=== PATIENT | male | born 1990 | race African-American/Black ===

== ENCOUNTER 2025-03-13 18:13 | Inpatient (IN) | payer SELFPAY ==
[~2025-03-13] VITALS: Ht 182.9 cm; Wt 88.5 kg
--- NOTE | 2025-03-13 18:59 | ED.PDOC ---
History of Present Illness HPI Comments 34-year-old male who came to ER for generalized weakness. Patient states he has a history of kidney failure. For the past few hours, been experiencing generalized weakness, muscle and joint pains, myalgia, left flank pain, epigastric pain, nausea and vomiting with chills. Patient states he feels very dehydrated. Chief Complaint: General Weakness Time Seen by MD: 18:59 Reviewed Notes: Nurses Notes Allergies: Coded Allergies: NO KNOWN ALLERGIES (Unverified , 03/13/25) Information Source: Patient Mode of Arrival: Ambulatory Severity: Moderate Timing: Hours Duration: Since onset Prehospital treatment: None Past Medical History PAST MEDICAL HISTORY: CKF Surgical History: Denies all surgeries Family History Family History: Reviewed,noncontributory to illness Social History Smoker: Non-Smoker Alcohol: Occasionally Drugs: Denies Drug Use Lives In: Home Constitutional: reports: chills, diaphoresis, malaise; denies: fatigue, fever, sweats, weakness, others EENTM: denies: blurred vision, double vision, ear bleeding, ear discharge, ear drainage, ear pain, ear ringing, eye pain, eye redness, hearing loss, mouth pain, mouth swelling, nasal discharge, nose bleeding, nose congestion, nose pain, photophobia, tearing, throat pain, throat swelling, voice changes, others Respiratory: denies: cough, hemoptysis, orthopnea, SOB at rest, shortness of breath, SOB with excertion, stridor, wheezing, others Cardiovascular: denies: chest pain, dizzy spells, diaphoresis, Dyspnea on exertion, edema, irregular heart beat, left arm pain, lightheadedness, palpitations, PND, syncope, others Gastrointestinal: reports: abdominal pain, nausea, vomiting; denies: abdomen distended, blood streaked bowels, constipated, diarrhea, dysphagia, difficulty swallowing, hematemesis, melena, poor appetite, poor fluid intake, rectal bleed ing, rectal pain, others Genitourinary: reports: flank pain; denies: burning, dysuria, frequency, hematuria, incontinence, penile discharge, penile sore, pain, testicle pain, testicle swelling, urgency, others Neurological: denies: dizziness, fainting, headache, left sided numbness, left sided weakness, numbness, paresthesia, pre-existing deficit, right sided numbness, right sided weakness, seizure, speech problems, tingling, tremors, weakness, others Musculoskeletal: denies: back pain, gout, joint pain, joint swelling, muscle pain, muscle stiffness, neck pain, others Integumetry: denies: bruises, change in color, change in hair/nails, dryness, laceration, lesions, lumps, rash, wounds, others Allergic/Immunocompromised: denies: Difficulty Healing, Frequent Infections, Hives, Itching, others Hematologic/Lymphatic: denies: anemia, blood clots, easy bleeding, easy bruising, swollen glands, others Endocrine: denies: excessive hunger, excessive sweating, excessive thirst, excessive urination, flushing, intolerance to cold, intolerance to heat, unexplained weight gain, unexplained weight loss, others Psychiatric: denies: anxiety, bipolar disorder, depression, hopeless, panic disorder, schizophrenia, sleepless, suicidal, others Physical Exam General Appearance: No Apparent Distress, Normal HEENT: Normal ENT Inspection, Pharynx Normal, TMs Normal Neck: Full Range of Motion, Non-Tender, Normal, Normal Inspection Respiratory: Chest Non-Tender, Lungs Clear, No Accessory Muscle Use, No Respiratory Distress, Normal Breath Sounds Cardiovascular: No Edema, No JVD, No Murmur, No Gallop, Normal Peripheral Pulses, Regular Rate/Rhythm Breast Exam: Deferred Gastrointestinal: No Organomegaly, Non Tender, No Pulsatile Mass, Normal Bowel Sounds, Soft Genitalia: Deferred Pelvic: Deferred Rectal: Deferred Extremities: No calf tenderness, Normal capillary refill, Normal inspection, Normal range of motion, Non-tender, No pedal edema Musculoskeletal : Apperance: Normal Neurologic: Alert, strainer tender II-XII nml as Tested, No Motor Deficits, Normal Affect, Normal Mood, No Sensory Deficits Cerebellar Function: Normal Reflexes: Normal Skin: Dry, Normal Color, Warm Lymphatic: No Adenopathy Was a procedure done? Was a procedure done?: No Differential Dx Considerations may include: Anemia, electrolyte imbalance, urinary tract infection, gastritis, dehydration, kidney failure X-Ray, Labs, Meds, VS Vital Signs Date Time Temp Pulse Resp B/P (MAP) Pulse Ox O2 Delivery O2 Flow Rate FiO2 03/13/25 18:14 97.5 107 18 156/83 100 97.5 Lab Test 03/13/25 19:11 Range/Units White Blood Count 12.6 H 4.4-10.8 10^3/uL Red Blood Count 6.17 H 4.5-5.90 10^6/uL Hemoglobin 20.5 H 13.5-17.5 g/dL Hematocrit 58.0 H 41.0-53.0 % Mean Corpuscular Volume 94.0 80.0-100.0 fL Mean Corpuscular Hemoglobin 33.1 H 28.0-32.0 pg Mean Corpuscular Hemoglobin Concent 35.2 32.0-36.0 g/dL Red Cell Distribution Width 13.4 11.8-14.3 % Platelet Count 247 140-450 10^3/uL Mean Platelet Volume 9.0 6.9-10.8 fL Neutrophils (%) (Auto) 86.9 H 37.0-80.0 % Lymphocytes (%) (Auto) 7.0 L 10.0-50.0 % Monocytes (%) (Auto) 5.9 0.0-12.0 % Eosinophils (%) (Auto) 0.1 0.0-7.0 % Basophils (%) (Auto) 0.1 0.0-2.0 % Neutrophils # (Auto) 10.9 H 1.6-8.6 10 ^3/uL Lymphocytes # (Auto) 0.9 0.4-5.4 10 ^3/uL Monocytes # (Auto) 0.7 0-1.3 10 ^3/uL Eosinophils # (Auto) 0 0-0.8 10 ^3/uL Basophils # (Auto) 0 0-0.2 10 ^3/uL Nucleated Red Blood Cells 0.4 % Sodium Level 135 L 136-145 mmol/L Potassium Level 4.7 3.5-5.1 mmol/L Chloride Level 96 L 98-107 mmol/L Carbon Dioxide Level 21 20-31 mmol/L Anion Gap 18 H 5-15 Blood Urea Nitrogen 10 9-23 mg/dL Creatinine 1.88 H 0.700-1.30 mg/dL Glomerular Filtration Rate Calc 47 >90 mL/min BUN/Creatinine Ratio 5.3 L 10.0-20.0 Serum Glucose 193 H 74-106 mg/dL Calcium Level 11.7 H 8.7-10.4 mg/dL Magnesium Level 2.3 1.6-2.6 mg/dL Total Bilirubin 2.0 H 0.2-1.0 mg/dL Aspartate Amino Transferase (AST) 62 H 13-40 U/L Alanine Aminotransferase (ALT) 77 H 7-40 U/L Alkaline Phosphatase 118 H 46-116 U/L Total Protein 9.7 H 5.7-8.2 g/dL Albumin Pending Time of 1ST Reevaluation: 18:56 Reevaluation 1ST: Unchanged Patient Education/Counseling: Diagnosis, Treatment Family Education/Counseling: Need For Follow Up SEPSIS Sepsis Screen Date sepsis recognized/suspect: Mar 13, 2025 Time Sepsis recognized/suspect: 1814 Recent Procedure: No On Antibiotic Therapy: No Respiratory Rate >20: No Heart Rate >90: Yes Temp<36 C (96.8 F) or >38.3 C: No SBP <90 or MAP <65 mmHG: No New Acute Mental Status Change: No Is the patient on CPAP, BIPAP,: No Physician Orders Comprehensive Metabolic Panel (03/13/25 18:47) Urinalysis (03/13/25 18:47) Magnesium (03/13/25 18:47) Ct Ab Pel Wo Con-No Oral Or Iv (03/13/25 18:47) Lipase (03/13/25 20:13) Vital Signs Date Time Temp Pulse Resp B/P (MAP) Pulse Ox O2 Delivery O2 Flow Rate FiO2 03/13/25 18:14 97.5 107 18 156/83 100 97.5 Laboratory Tests Test 03/13/25 19:11 White Blood Count 12.6 10^3/uL (4.4-10.8) H Departure 1 Departure Time of Disposition: 20:14 Impression: Primary Impression: Nausea and vomiting Additional Impressions: Dehydration Acute renal injury Disposition: ADMITTED INPATIENT Admit to: Med Surg Condition: Guarded Discharged With: Self Comments 34-year-old male complains of some migrating abdominal pain and nausea and vomiting for the last couple of days. Lab workup shows elevated creatinine of 1.8. H&H are elevated consistent with dehydration and hemoconcentration. Patient was given IV fluids and nausea medicine. Patient will need to be admitted for dehydration and acute renal injury. Critical Care Note Critical Care Time?: No Stability Stability form required: No Heart Score Heart Score: Heart Score Response (Comments) Value History N/A 0 EKG N/A 0 Age N/A 0 Risk Factors N/A 0 Troponin N/A 0 Total 0 I personally scribed for HUGO JUSTIN MD ([email or web address]) on 03/13/25 at 18:59. Electronically submitted by Carlos Eduardo Yun ([facility]). HUGO JUSTIN MD Mar 13, 2025 18:59
[2025-03-13 19:45] LABS: Hemoglobin 20.5 g/dL (13.5-17.5); Mean Corpuscular Volume 94.0 fL (80.0-100.0); Nucleated Red Blood Cells % 0.4 %
[2025-03-13 19:48] LABS: Mean Corpuscular Hemoglobin 33.1 pg (28.0-32.0)
[2025-03-13 19:49] LABS: Hematocrit 58.0 % (41.0-53.0)
--- NOTE | 2025-03-13 19:52 | DVH ---
Exam: CT CT AB PEL WO CON-NO ORAL OR IV History: left flank pain Comparison Study: None TECHNIQUE: Multidetector CT of the abdomen was performed from lung bases to pubic symphysis. Imaging was performed without IV contrast. Axial, coronal and sagittal multiplanar reformats were obtained fr om the axial data set by the technologist. Radiation Dose Information: CT Dose: CTDI volume is 11.46 mGy. Dose-length product is 657.54 mGy*cm FINDINGS: Evaluation of solid organs is limited due to lack of intravenous contrast use. Findings: Lung Bases: No acute or significant lung base finding. Normal heart size. No pleural or pericardial effusion. Liver: The liver is normal in size. No focal lesions. Gallbladder and Biliary Tree: Unremarkable Spleen: Unremarkable Pancreas: Mild diffuse enlargement of the pancreas with peripancreatic stranding. Correlate with panc reatic enzymes to exclude pancreatitis. Adrenal Glands: Unremarkable Kidneys: Kidneys are grossly normal without calculi or hydronephrosis. Bladder: Grossly unremarkable for degree of distention. Bowel: Mild fluid distended stomach. Small bowel and colon are normal in caliber and distribution. T he appendix is not visualized; however, no secondary findings of acute appendicitis identified. Ascites: Absent Lymphadenopathy: No mesenteric, retroperitoneal or periportal lymphadenopathy. Abdominal Wall and Mesentery: Unremarkable. Vasculature: The visualized abdominal aorta is normal in size and caliber. Evaluation of abdominal a nd pelvic vessels is limited due to lack of intravenous contrast. Pelvic Organs: Unremarkable Musculoskeletal: No aggressive focal bony lesions, acute fractures or dislocation. Soft tissues: Unremarkable IMPRESSION: 1. Mild diffuse enlargement of the pancreas with peripancreatic stranding. Correlate with lab value s to exclude pancreatitis. 2. Stranding in the mesenteric fat around the pancreas and anterior to the right left kidneys with th ickening of Gerota's fascia bilaterally. 3. Mild fluid-filled distended stomach. May represent gastroparesis, gastric outlet obstruction, may be secondary to the pancreatitis, or use of GLP-1 medications. 4. No free air or free fluid. 5. No nephrolithiasis or hydronephrosis 6. Mild thickening of the left colon without abnormal distention. May represent inflammatory changes secondary to the pancreatitis. Radiation optimization: All CT scans at this facility use at least one of these dose optimization te chniques: automated exposure control mA and/or kV adjustment per patient size (includes targeted exa ms where dose is matched to clinical indication) or iterative reconstruction.
[2025-03-13 19:59] LABS: BUN/Creatinine Ratio 5.3 (10.0-20.0); Blood Urea Nitrogen 10 mg/dL (9-23); Carbon Dioxide 21 mmol/L (20-31); Magnesium 2.3 mg/dL (1.6-2.6)
[2025-03-13 20:01] LABS: Alanine Aminotransferase 77 U/L (7-40); Alkaline Phosphatase 118 U/L (46-116); Bilirubin, Total 2.0 mg/dL (0.2-1.0); Calcium 11.7 mg/dL (8.7-10.4); Glucose 193 mg/dL (74-106); Total Protein 9.7 g/dL (5.7-8.2)
[2025-03-13 20:03] LABS: Anion Gap 18 (5-15); Chloride 96 mmol/L (98-107); Potassium 4.7 mmol/L (3.5-5.1); Sodium 135 mmol/L (136-145)
[2025-03-13 20:19] LABS: Albumin 5.8 g/dL (3.2-4.8)
[2025-03-13 20:36] VITALS: PULSE 89; RESP 18; O2SAT 96
[2025-03-13] MEDS: MORPHINE SULFATE 4 MG/ML SYR/VIAL IV ONE (20:40)
[2025-03-13] MEDS: SODIUM CHLORIDE 0.9% 1,000 ML IV ONE ×2 (20:41→21:44)
[2025-03-13] MEDS: ONDANSETRON HCL 4 MG/2 ML VIAL IV ONE (20:41)
--- NOTE | 2025-03-13 21:33 | DVH ---
CLINICAL HISTORY: P{ancreatitis TECHNIQUE: Single view of the chest was obtained. COMPARISON: None FINDINGS: The heart size and pulmonary vasculature are normal. The lungs are clear. IMPRESSION: NO ACUTE CARDIOPULMONARY PROCESS.
[2025-03-13] MEDS: HYDROmorphone HCL 2 MG/ML VL/or syr IV ONE (21:42)
[2025-03-13 21:57] LABS: INR 1.05 (0.9-1.15); Partial Thromboplastin Time 28.0 SEC (24.5-34.5); Prothrombin Time 11.1 sec (9.3-11.8)
[2025-03-13 22:32] LABS: Triglycerides 85 mg/dL (< 150)
[2025-03-13] MEDS: SODIUM CHLORIDE 0.9% 1,000 ML IV SCH (22:33)
[2025-03-13 22:34] LABS: Cholesterol 158 mg/dL (< 200); HDL Cholesterol 69 mg/dL (40-59)
[2025-03-13 22:37] LABS: Lactic Acid w/Reflex 3.3 mmol/L (0.4-2.0)
[2025-03-13] MEDS: ONDANSETRON HCL 4 MG/2 ML VIAL IM ONE (23:02)
[2025-03-13] MEDS: PIPERACILLIN-TAZOB 3.375GM 100 ML IV ONE (23:20)
[2025-03-14] VITALS (9 sets, daily range): BP systolic 120–173; BP diastolic 75–103; PULSE 61–86; RESP 16–20; TEMP 97.6–99.1; O2SAT 93–98
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
[2025-03-14] MEDS ORDERED: MORPHINE SULFATE INJ 2 MG/ml SYRG IV PRN (00:15)
[2025-03-14] MEDS: MORPHINE SULFATE 4 MG/ML SYR/VIAL IV ONE (00:53)
[2025-03-14] MEDS ORDERED: ONDANSETRON HCL 4 MG/2 ML VIAL IV PRN (01:00)
[2025-03-14] MEDS: LACTATED RINGER'S 1,000 ML IV SCH (01:38)
[2025-03-14] MEDS: PANTOPRAZOLE 40 MG/10 ML VIAL INJ IV ONE (01:43)
[2025-03-14 01:58] LABS: Cannabinoid Screen, Urine Pos (NEGATIVE)
[2025-03-14 02:01] LABS: Amphetamine Screen, Urine Neg (NEGATIVE); Barbiturate Scree,Urine Neg (NEGATIVE); Benzodiazephine Screen, Urine Neg (NEGATIVE); Cocaine Screen, Urine Neg (NEGATIVE); Opiate Scree,Urine Pos (NEGATIVE); Phencyclidine Screen, Urine Neg (NEGATIVE)
[2025-03-14 02:02] LABS: Urine Protein, UAD 1+ (Negative)
[2025-03-14 03:08] LABS: Base Excess -6.4 mmol/L (-2.0-3.0)
[2025-03-14] MEDS: SODIUM CHLORIDE 0.9% 1,000 ML IV ONE ×2 (03:57→04:58)
[2025-03-14] MEDS ORDERED: SODIUM CHLORIDE 0.9% 2,250 ML IV ONE (04:15)
[2025-03-14] MEDS: HYDROmorphone HCL 2 MG/ML VL/or syr IV ONE (04:25)
[2025-03-14] MEDS: PIPERACILLIN-TAZOB 3.375GM 100 ML IV SCH (06:13)
[2025-03-14] MEDS: PANTOPRAZOLE 40 MG/10 ML VIAL INJ IV SCH (08:49)
[2025-03-14] MEDS: ENOXAPARIN SOD 40 MG/0.4 ML SYRINGE SC SCH (08:49)
--- NOTE | 2025-03-14 11:12 | DVHPN2 ---
Subjective The patient is seen and examined at bedside. Complain of severe abdominal pain. Reviewed: Care Plan, H&P, Labs, Medications, Previous Orders, Radiology Changes from previous H/P or p: No Changes Objective Vitals Vital Signs Date Time Temp Pulse Resp B/P (MAP) Pulse Ox O2 Delivery O2 Flow Rate FiO2 03/14/25 08:00 82 18 98 Room Air* 0 21 03/14/25 05:00 97.6 155/83 (107) 97.6 Intake/Output Intake and Output 03/14/25 07:00 Intake Total 0 ml Balance 0 ml Intake Oral 0 ml # Voids 1 General Appearance: Alert, Oriented X3, Cooperative, No acute distress HEENT: Atraumatic, PERRLA, EOMI Neck: Supple Lungs: Clear to auscultation, Normal air movement Cardiovascular: Regular rate, Normal S1, Normal S2, No murmurs, Gallops, Rubs Abdomen: Normal bowel sounds, Soft, No tenderness Neuro: Cranial nerves 3-12 NL Psych/Mental Status: Mental status NL Medications Current Medications Medications Dose Ordered Sig/Ben Route Start Time Stop Time Status Last Admin Dose Admin Morphine Sulfate 2 mg Q4HPRN PRN IV 03/14/25 00:15 Enoxaparin Sodium 40 mg DAILY SC 03/14/25 10:00 03/14/25 08:49 40 MG Lactated Ringer's 1,000 ml @ 100 mls/hr Q10H IV 03/14/25 00:15 03/14/25 08:52 100 MLS/HR Piperacillin Sod/ Tazobactam Sod 100 ml @ 25 mls/hr Q8HR IV 03/14/25 06:00 03/14/25 06:13 25 MLS/HR Pantoprazole Sodium 40 mg BID IV 03/14/25 10:00 03/14/25 08:49 40 MG Ondansetron HCl 4 mg Q4HPRN PRN IV 03/14/25 01:00 Laboratory Results Laboratory Tests 03/13/25 19:11 Chemistry Test 03/13/25 19:11 03/13/25 21:45 Albumin 5.8 g/dL (3.2-4.8) H Calcium Level 11.7 mg/dL (8.7-10.4) H Magnesium Level 2.3 mg/dL (1.6-2.6) Total Protein 9.7 g/dL (5.7-8.2) H Phosphorus Level 4.0 mg/dL (2.4-5.1) Coagulation Test 03/13/25 19:11 Prothrombin Time 11.1 sec (9.3-11.8) Prothrombin Time INR 1.05 (0.9-1.15) Activated Partial Thromboplast Time 28.0 SEC (24.5-34.5) Lipid panel Test 03/13/25 19:11 03/13/25 21:45 Lipase 1925 U/L (12-53) H Cholesterol Level 158 mg/dL (< 200) HDL Cholesterol 69 mg/dL (40-59) H Triglycerides Level 85 mg/dL (< 150) LFT Test 03/13/25 19:11 Alanine Aminotransferase (ALT) 77 U/L (7-40) H Alkaline Phosphatase 118 U/L (46-116) H Aspartate Amino Transferase (AST) 62 U/L (13-40) H Total Bilirubin 2.0 mg/dL (0.2-1.0) H HgA1c, TSH Test 03/13/25 19:11 Hemoglobin A1c 5.2 % A1C (<5.7) Thyroid Stimulating Hormone (TSH) 1.60 uIU/mL (0.55-4.78) Urinalysis Test 03/14/25 01:09 Urine Color Yellow (Yellow) Urine Clarity Clear (Clear) Urine pH 5.5 (5.0-9.0) Urine Specific Wilder 1.029 (1.001-1.035) Urine Protein 1+ (Negative) H Urine Ketones 4+ (Negative) H Urine Blood Negative /uL (Negative) Urine Nitrite Negative (Negative) Urine Bilirubin Negative (Negative) Urine Urobilinogen Normal mg/dL (Negative) Urine Leukocyte Esterase Negative /uL (Negative) Urine RBC None seen /hpf (0 - 3) Urine Microscopic WBC 20 /HPF (0-3) H Urine Squamous Epithelial Cells Few /hpf (<5) Urine Bacteria None seen /hpf (None Seen) Urine Hyaline Casts Many /lpf (0 - 2) Urine Mucus Few (None Seen) Urine Glucose 4+ mg/dL (Normal) H Blood Gas Results Test 03/14/25 02:55 Arterial Blood pH 7.319 (7.350-7.450) FiO2 % 21.0 Labs and/or images reviewed: Labs reviewed by me Assessment/Plan Assessment/Plan Sepsis secondary to pancreatitis versus UTI Probable alcoholic pancreatitis Probable complicated UTI JEWEL hemodynamically mediated (VMN) Hyperlacticacidemia Ruled out are ARDS Transaminitis Ethanol abuse Polycythemia - secondary to dehydration Continuing current management with IV fluid. Continuing with IV pain medication morphine. Continuing with Zosyn IV. Continuing with Ativan PRN Continuing with Librium. Advised to stop drinking. This medical document was created using an electronic medical record system with [employer] direct computerized dictation system. Although this document has been carefully reviewed, there may still be some phonetic and typographical errors. These areas are purely typographical due to imperfections of the software programs, and do not reflect any compromise in the patient's medical care. Plan discussed with: Patient Date of Service: Mar 14, 2025 Billing Provider: WENDIE POON MD Common Visit Codes: [id number] INP/OBS CARE(HIGH) WENDIE POON MD Mar 14, 2025 11:12
[2025-03-14 11:37] LABS: Hematocrit 49.5 % (41.0-53.0); Hemoglobin 17.2 g/dL (13.5-17.5); Mean Corpuscular Hemoglobin 32.6 pg (28.0-32.0); Mean Corpuscular Volume 93.8 fL (80.0-100.0); Nucleated Red Blood Cells % 0.0 %
[2025-03-14 11:52] LABS: Albumin 4.0 g/dL (3.2-4.8); Alkaline Phosphatase 72 U/L (46-116); Anion Gap 9 (5-15); BUN/Creatinine Ratio 6.9 (10.0-20.0); Carbon Dioxide 26 mmol/L (20-31); Chloride 103 mmol/L (98-107); Potassium 4.4 mmol/L (3.5-5.1); Sodium 138 mmol/L (136-145); Total Protein 6.6 g/dL (5.7-8.2)
[2025-03-14 11:59] LABS: Alanine Aminotransferase 41 U/L (7-40); Bilirubin, Total 1.6 mg/dL (0.2-1.0); Blood Urea Nitrogen 7 mg/dL (9-23); Calcium 8.4 mg/dL (8.7-10.4); Glucose 153 mg/dL (74-106)
[2025-03-14] MEDS: KETOROLAC TROMETH 30 MG/ML 1ML VIAL IV PRN (12:00)
[2025-03-14 12:03] LABS: Lipase 1429 U/L (12-53)
[2025-03-14] MEDS ORDERED: MORPHINE SULFATE 4 MG/ML SYR/VIAL IV PRN (20:30)
[2025-03-14] MEDS: HYDROcodone-ACET 5/325MG TAB PO PRN (21:27)
[2025-03-15] VITALS (8 sets, daily range): BP systolic 134–155; BP diastolic 77–94; PULSE 67–108; RESP 16–24; TEMP 97.5–99.3; O2SAT 95–96
[2025-03-15 06:02] LABS: Hematocrit 48.8 % (41.0-53.0); Hemoglobin 16.9 g/dL (13.5-17.5); Mean Corpuscular Hemoglobin 32.5 pg (28.0-32.0); Mean Corpuscular Volume 93.7 fL (80.0-100.0); Nucleated Red Blood Cells % 0.0 %
[2025-03-15 06:10] LABS: Anion Gap 12 (5-15); Carbon Dioxide 22 mmol/L (20-31); Chloride 106 mmol/L (98-107); Potassium 3.9 mmol/L (3.5-5.1); Sodium 140 mmol/L (136-145)
[2025-03-15 06:11] LABS: Calcium 7.9 mg/dL (8.7-10.4)
[2025-03-15 06:16] LABS: BUN/Creatinine Ratio 9.3 (10.0-20.0)
[2025-03-15 06:35] LABS: Blood Urea Nitrogen 8 mg/dL (9-23); Glucose 116 mg/dL (74-106); Lipase 595 U/L (12-53)
--- NOTE | 2025-03-15 09:03 | DVHSR ---
APPROVED REPORT EXAM: Two-dimensional and M-mode echocardiogram with Doppler and color Doppler. Blood Pressure: 155/83 mmHg INDICATION Epigastalgia RISK FACTORS Height: 6', Weight: 180 DIMENSIONS LVDd4.9 (3.8-5.7cm)LA (2D)3.7 (1.9-4.0cm)Aortic Root3.1 (2.0-3.7cm) LVDs2.6 (2.5-4.0cm)LA (MM) (1.9-4.0cm)Aortic Cusp Exc1.9 (1.5-2.0cm) EF (%) 78.0 (55-70%)Rt. Atrium (1.9-4.0cm)Asc. Aorta cm IVSd1.0 (0.7-1.1cm)RV (D) (1.8-2.4cm) PWd0.7 (0.7-1.1cm) Mitral Valve MitralMitral Stenosis E wave0.86m/sMV Mean GR.mmHg A wave0.54m/sMV Peak GR.mmHg E/A ratio1.62D MVAcm2 DECEL [id number] 1/2 Timems Aortic Valve Aortic ValveAortic Stenosis V11.16m/Ramila Mean GR.5mmHg V21.45m/Ramila Peak GR.9mmHg LVOT Diameter2.0 (1.8-2.4cm)Doppler AVA2.51cm2 Pulmonic Valve V21.02m/s Tricuspid Valve TR Velocity2.75m/s [id number] Other Information Quality : Technically LimitedRhythm : Technically limited study due to body habitus. Conclusion NORMAL LV EF AND IS 75% NORMAL VALVES NORMAL RV FUNCTION NO EFFUSION
[2025-03-16] VITALS (7 sets, daily range): BP systolic 127–149; BP diastolic 90–101; PULSE 72–83; RESP 17–18; TEMP 98–98.7; O2SAT 92–94
--- NOTE | 2025-03-16 14:23 | DVHPN2 ---
Reviewed: Care Plan, H&P, Labs, Medications, Previous Orders, Radiology Changes from previous H/P or p: No Changes General: Per HPI Objective Vitals Vital Signs Date Time Temp Pulse Resp B/P (MAP) Pulse Ox O2 Delivery O2 Flow Rate FiO2 03/16/25 13:00 98.0 83 17 127/94 (105) 92 98.0 03/16/25 08:00 Room Air* 0 21 Intake/Output Intake and Output 03/16/25 07:00 Intake Total 1135 ml Output Total 900 ml Balance 235 ml Intake Oral 1110 ml IV Total 25 ml Output Urine Total 900 ml # Voids 2 General Appearance: Alert, Oriented X3, Cooperative, No acute distress HEENT: Atraumatic, PERRLA, EOMI Neck: Supple Lungs: Clear to auscultation, Normal air movement Cardiovascular: Regular rate, Normal S1, Normal S2, No murmurs, Gallops, Rubs Abdomen: Normal bowel sounds, Soft, No tenderness Neuro: Cranial nerves 3-12 NL Psych/Mental Status: Mental status NL Medications Current Medications Medications Dose Ordered Sig/Ben Route Start Time Stop Time Status Last Admin Dose Admin Enoxaparin Sodium 40 mg DAILY SC 03/14/25 10:00 03/14/25 08:49 40 MG Lactated Ringer's 1,000 ml @ 100 mls/hr Q10H IV 03/14/25 00:15 03/16/25 02:15 100 MLS/HR Piperacillin Sod/ Tazobactam Sod 100 ml @ 25 mls/hr Q8HR IV 03/14/25 06:00 03/16/25 05:46 25 MLS/HR Pantoprazole Sodium 40 mg BID IV 03/14/25 10:00 03/16/25 09:38 40 MG Ondansetron HCl 4 mg Q4HPRN PRN IV 03/14/25 01:00 Ketorolac Tromethamine 30 mg Q6HPRN PRN IV 03/14/25 11:30 03/19/25 11:29 03/16/25 09:39 30 MG Acetaminophen/ Hydrocodone Bitart 1 tab Q6HPRN PRN PO 03/14/25 21:15 03/16/25 11:52 1 TAB Laboratory Results Laboratory Tests 03/15/25 05:31 Urinalysis Test 03/14/25 01:09 Urine Color Yellow (Yellow) Urine Clarity Clear (Clear) Urine pH 5.5 (5.0-9.0) Urine Specific [place] 1.029 (1.001-1.035) Urine Protein 1+ (Negative) H Urine Ketones 4+ (Negative) H Urine Blood Negative /uL (Negative) Urine Nitrite Negative (Negative) Urine Bilirubin Negative (Negative) Urine Urobilinogen Normal mg/dL (Negative) Urine Leukocyte Esterase Negative /uL (Negative) Urine RBC None seen /hpf (0 - 3) Urine Microscopic WBC 20 /HPF (0-3) H Urine Squamous Epithelial Cells Few /hpf (<5) Urine Bacteria None seen /hpf (None Seen) Urine Hyaline Casts Many /lpf (0 - 2) Urine Mucus Few (None Seen) Urine Glucose 4+ mg/dL (Normal) H Microbiology Microbiology Date/Time Source Procedure Growth Status 03/14/25 01:09 Voided Urine Urine Culture - Preliminary Resulted 03/13/25 21:45 Blood Blood Culture - Preliminary NO GROWTH AFTER 48 HOURS OF INCUBATION. Resulted Labs and/or images reviewed: Labs reviewed by me, Image(s) reviewed by me Assessment/Plan Assessment/Plan Sepsis secondary to pancreatitis versus UTI Probable alcoholic pancreatitis Probable complicated UTI JEWEL hemodynamically mediated (VMN) Hyperlacticacidemia Ruled out are ARDS Transaminitis Ethanol abuse Polycythemia - secondary to dehydration Continuing current management with IV fluid. Continuing with IV pain medication morphine. Continuing with Zosyn IV. Continuing with Ativan PRN Continuing with Librium. Advised to stop drinking. 03/15/2025: still has pain, advancing diet as appropriate. advancing to liquid diet today This medical document was created using an electronic medical record system with M*M [employer]rency direct computerized dictation system. Although this document has been carefully reviewed, there may still be some phonetic and typographical errors. These areas are purely typographical due to imperfections of the software programs, and do not reflect any compromise in the patient's medical care. Plan discussed with: Patient My Orders Orders - SAROJ GRIJALVA DO Procedure Category Date Status Time Clear Liq Diet DIET 03/15/25 Transmitted Dinner Date of Service: Mar 15, 2025 Billing Provider: SAROJ GRIJALVA DO Common Visit Codes: [id number] INP/OBS CARE(HIGH) SAROJ GRIJALVA DO Mar 16, 2025 14:23
--- NOTE | 2025-03-16 14:24 | DVHINCON2 ---
Allergies: Coded Allergies: NO KNOWN ALLERGIES (Unverified , 03/13/25) Home Meds No Active Prescriptions or Reported Meds Family History: FH: hypertension H&P Exam Vital Signs/I&O Vital Sign Date Time Temp Pulse Resp B/P (MAP) Pulse Ox O2 Delivery O2 Flow Rate FiO2 03/16/25 13:00 98.0 83 17 127/94 (105) 92 98.0 03/16/25 08:00 Room Air* 0 21 Intake and Output 03/15/25 03/16/25 19:00 07:00 Intake Total 385 ml 750 ml Output Total 900 ml Balance -515 ml 750 ml Intake Oral 360 ml 750 ml IV Total 25 ml Output Urine Total 900 ml # Voids 2 Labs/Diagnostic Data Labs/Diagnostic Data Laboratory Tests Test 03/15/25 05:31 03/14/25 10:00 03/14/25 02:55 03/14/25 01:09 Range/Units White Blood Count 15.2 H 12.3 H 4.4-10.8 10^3/uL Red Blood Count 5.21 5.28 4.5-5.90 10^6/uL Hemoglobin 16.9 17.2 # 13.5-17.5 g/dL Hematocrit 48.8 49.5 # 41.0-53.0 % Mean Corpuscular Volume 93.7 93.8 80.0-100.0 fL Mean Corpuscular Hemoglobin 32.5 H 32.6 H 28.0-32.0 pg Mean Corpuscular Hemoglobin Concent 34.7 34.8 32.0-36.0 g/dL Red Cell Distribution Width 13.5 13.6 11.8-14.3 % Platelet Count 144 170 140-450 10^3/uL Mean Platelet Volume 8.6 8.6 6.9-10.8 fL Neutrophils (%) (Auto) 88.2 H 88.3 H 37.0-80.0 % Lymphocytes (%) (Auto) 3.6 L 4.6 L 10.0-50.0 % Monocytes (%) (Auto) 8.1 6.9 0.0-12.0 % Eosinophils (%) (Auto) 0.0 0.0 0.0-7.0 % Basophils (%) (Auto) 0.1 0.2 0.0-2.0 % Neutrophils # (Auto) 13.4 H 10.8 H 1.6-8.6 10 ^3/uL Lymphocytes # (Auto) 0.6 0.6 0.4-5.4 10 ^3/uL Monocytes # (Auto) 1.2 0.8 0-1.3 10 ^3/uL Eosinophils # (Auto) 0 0 0-0.8 10 ^3/uL Basophils # (Auto) 0 0 0-0.2 10 ^3/uL Nucleated Red Blood Cells 0.0 0.0 % Sodium Level 140 138 136-145 mmol/L Potassium Level 3.9 4.4 3.5-5.1 mmol/L Chloride Level 106 103 98-107 mmol/L Carbon Dioxide Level 22 26 20-31 mmol/L Anion Gap 12 9 5-15 Blood Urea Nitrogen 8 L 7 L 9-23 mg/dL Creatinine 0.86 1.02 0.700-1.30 mg/dL Glomerular Filtration Rate Calc 117 99 >90 mL/min BUN/Creatinine Ratio 9.3 L 6.9 L 10.0-20.0 Serum Glucose 116 H 153 H 74-106 mg/dL Calcium Level 7.9 L 8.4 L 8.7-10.4 mg/dL Lipase 595 H 1429 H 12-53 U/L Lactic Acid Level 1.5 0.4-2.0 mmol/L Total Bilirubin 1.6 H 0.2-1.0 mg/dL Aspartate Amino Transferase (AST) 38 13-40 U/L Alanine Aminotransferase (ALT) 41 H 7-40 U/L Alkaline Phosphatase 72 46-116 U/L Lactate Dehydrogenase 288 H 120-246 U/L Total Protein 6.6 5.7-8.2 g/dL Albumin 4.0 3.2-4.8 g/dL Blood Gas Specimen Type Arterial Blood Gas Sample Site Right brachial Blood Gas Patient Temperature 37.0 Arterial Blood Date Drawn [id number] Arterial Blood pH 7.319 L 7.350-7.450 Arterial Blood Partial Pressure CO2 37.4 35.0-48.0 mmHg Arterial Blood Partial Pressure O2 90.0 83.0-108.0 mmHg Arterial Blood HCO3 18.8 L 21.0-28.0 mmol/L Arterial Blood Oxygen Saturation 96.4 94.0-98.0 % Arterial Blood Base Excess -6.4 L -2.0-3.0 mmol/L Arterial Blood Oxyhemoglobin 95.2 94.0-98.0 % Arterial Blood Carboxyhemoglobin 0.3 L 0.5-1.5 % Arterial Blood Methemoglobin 0.9 0.0-1.5 % Myles Test N/a Blood Gas Total Hemoglobin 20.10 *H 13.5-17.5 g/dL Blood Gas Modality Room air FiO2 % 21.0 Blood Gas Critical Value Read Back Yes Blood Gas Notified Whom fredy Mixon Blood Gas Notified Time [id number] Blood Gas Notified By Rt, irma hargrove Urine Color Yellow Yellow Urine Clarity Clear Clear Urine pH 5.5 5.0-9.0 Urine Specific [place] 1.029 1.001-1.035 Urine Protein 1+ H Negative Urine Ketones 4+ H Negative Urine Blood Negative Negative /uL Urine Nitrite Negative Negative Urine Bilirubin Negative Negative Urine Urobilinogen Normal Negative mg/dL Urine Leukocyte Esterase Negative Negative /uL Urine RBC None seen 0 - 3 /hpf Urine Microscopic WBC 20 H 0-3 /HPF Urine Squamous Epithelial Cells Few <5 /hpf Urine Bacteria None seen None Seen /hpf Urine Hyaline Casts Many 0 - 2 /lpf Urine Mucus Few None Seen Urine Glucose 4+ H Normal mg/dL Urine Opiates Screen Pos NEGATIVE Urine Fentanyl Screen Neg NEGATIVE Urine Barbiturates Screen Neg NEGATIVE Urine Phencyclidine Screen Neg NEGATIVE Urine Amphetamines Screen Neg NEGATIVE Urine Benzodiazepines Screen Neg NEGATIVE Urine Cocaine Screen Neg NEGATIVE Urine Cannabinoids Screen Pos NEGATIVE Test 03/13/25 23:59 03/13/25 21:45 03/13/25 21:35 03/13/25 19:11 Range/Units Lactic Acid Level 3.7 *H 3.3 *H 0.4-2.0 mmol/L Phosphorus Level 4.0 2.4-5.1 mg/dL Triglycerides Level 85 < 150 mg/dL Cholesterol Level 158 < 200 mg/dL LDL Cholesterol 58 < 100 mg/dL HDL Cholesterol 69 H 40-59 mg/dL Vitamin B12 Level 673 211-911 pg/mL Vitamin D 25-Hydroxy 22.1 L 30.0-100 ng/mL Plasma/Serum Blood Alcohol < 3.0 <10 mg/dL White Blood Count 12.6 H 4.4-10.8 10^3/uL Red Blood Count 6.17 H 4.5-5.90 10^6/uL Hemoglobin 20.5 H 13.5-17.5 g/dL Hematocrit 58.0 H 41.0-53.0 % Mean Corpuscular Volume 94.0 80.0-100.0 fL Mean Corpuscular Hemoglobin 33.1 H 28.0-32.0 pg Mean Corpuscular Hemoglobin Concent 35.2 32.0-36.0 g/dL Red Cell Distribution Width 13.4 11.8-14.3 % Platelet Count 247 140-450 10^3/uL Mean Platelet Volume 9.0 6.9-10.8 fL Neutrophils (%) (Auto) 86.9 H 37.0-80.0 % Lymphocytes (%) (Auto) 7.0 L 10.0-50.0 % Monocytes (%) (Auto) 5.9 0.0-12.0 % Eosinophils (%) (Auto) 0.1 0.0-7.0 % Basophils (%) (Auto) 0.1 0.0-2.0 % Neutrophils # (Auto) 10.9 H 1.6-8.6 10 ^3/uL Lymphocytes # (Auto) 0.9 0.4-5.4 10 ^3/uL Monocytes # (Auto) 0.7 0-1.3 10 ^3/uL Eosinophils # (Auto) 0 0-0.8 10 ^3/uL Basophils # (Auto) 0 0-0.2 10 ^3/uL Nucleated Red Blood Cells 0.4 % Prothrombin Time 11.1 9.3-11.8 sec Prothrombin Time INR 1.05 0.9-1.15 Activated Partial Thromboplast Time 28.0 24.5-34.5 SEC Sodium Level 135 L 136-145 mmol/L Potassium Level 4.7 3.5-5.1 mmol/L Chloride Level 96 L 98-107 mmol/L Carbon Dioxide Level 21 20-31 mmol/L Anion Gap 18 H 5-15 Blood Urea Nitrogen 10 9-23 mg/dL Creatinine 1.88 H 0.700-1.30 mg/dL Glomerular Filtration Rate Calc 47 >90 mL/min BUN/Creatinine Ratio 5.3 L 10.0-20.0 Serum Glucose 193 H 74-106 mg/dL Hemoglobin A1c 5.2 <5.7 % A1C Calcium Level 11.7 H 8.7-10.4 mg/dL Magnesium Level 2.3 1.6-2.6 mg/dL Total Bilirubin 2.0 H 0.2-1.0 mg/dL Aspartate Amino Transferase (AST) 62 H 13-40 U/L Alanine Aminotransferase (ALT) 77 H 7-40 U/L Alkaline Phosphatase 118 H 46-116 U/L Total Protein 9.7 H 5.7-8.2 g/dL Albumin 5.8 H 3.2-4.8 g/dL Lipase 1925 H 12-53 U/L Thyroid Stimulating Hormone (TSH) 1.60 0.55-4.78 uIU/mL SAROJ GRIJALVA DO Mar 16, 2025 14:23
--- NOTE | 2025-03-16 14:27 | DVHPN2 ---
Reviewed: Care Plan, H&P, Labs, Medications, Previous Orders, Radiology Changes from previous H/P or p: No Changes General: Per HPI Objective Vitals Vital Signs Date Time Temp Pulse Resp B/P (MAP) Pulse Ox O2 Delivery O2 Flow Rate FiO2 03/16/25 13:00 98.0 83 17 127/94 (105) 92 98.0 03/16/25 08:00 Room Air* 0 21 Intake/Output Intake and Output 03/16/25 07:00 Intake Total 1135 ml Output Total 900 ml Balance 235 ml Intake Oral 1110 ml IV Total 25 ml Output Urine Total 900 ml # Voids 2 General Appearance: Alert, Oriented X3, Cooperative, No acute distress HEENT: Atraumatic, PERRLA, EOMI Neck: Supple Lungs: Clear to auscultation, Normal air movement Cardiovascular: Regular rate, Normal S1, Normal S2, No murmurs, Gallops, Rubs Abdomen: Normal bowel sounds, Soft, No tenderness Neuro: Cranial nerves 3-12 NL Psych/Mental Status: Mental status NL Medications Current Medications Medications Dose Ordered Sig/Ben Route Start Time Stop Time Status Last Admin Dose Admin Enoxaparin Sodium 40 mg DAILY SC 03/14/25 10:00 03/14/25 08:49 40 MG Lactated Ringer's 1,000 ml @ 100 mls/hr Q10H IV 03/14/25 00:15 03/16/25 02:15 100 MLS/HR Piperacillin Sod/ Tazobactam Sod 100 ml @ 25 mls/hr Q8HR IV 03/14/25 06:00 03/16/25 05:46 25 MLS/HR Pantoprazole Sodium 40 mg BID IV 03/14/25 10:00 03/16/25 09:38 40 MG Ondansetron HCl 4 mg Q4HPRN PRN IV 03/14/25 01:00 Ketorolac Tromethamine 30 mg Q6HPRN PRN IV 03/14/25 11:30 03/19/25 11:29 03/16/25 09:39 30 MG Acetaminophen/ Hydrocodone Bitart 1 tab Q6HPRN PRN PO 03/14/25 21:15 03/16/25 11:52 1 TAB Laboratory Results Laboratory Tests 03/15/25 05:31 Urinalysis Test 03/14/25 01:09 Urine Color Yellow (Yellow) Urine Clarity Clear (Clear) Urine pH 5.5 (5.0-9.0) Urine Specific [place] 1.029 (1.001-1.035) Urine Protein 1+ (Negative) H Urine Ketones 4+ (Negative) H Urine Blood Negative /uL (Negative) Urine Nitrite Negative (Negative) Urine Bilirubin Negative (Negative) Urine Urobilinogen Normal mg/dL (Negative) Urine Leukocyte Esterase Negative /uL (Negative) Urine RBC None seen /hpf (0 - 3) Urine Microscopic WBC 20 /HPF (0-3) H Urine Squamous Epithelial Cells Few /hpf (<5) Urine Bacteria None seen /hpf (None Seen) Urine Hyaline Casts Many /lpf (0 - 2) Urine Mucus Few (None Seen) Urine Glucose 4+ mg/dL (Normal) H Microbiology Microbiology Date/Time Source Procedure Growth Status 03/14/25 01:09 Voided Urine Urine Culture - Preliminary Resulted 03/13/25 21:45 Blood Blood Culture - Preliminary NO GROWTH AFTER 48 HOURS OF INCUBATION. Resulted Assessment/Plan Assessment/Plan Sepsis secondary to pancreatitis versus UTI Probable alcoholic pancreatitis Probable complicated UTI JEWEL hemodynamically mediated (VMN) Hyperlacticacidemia Ruled out are ARDS Transaminitis Ethanol abuse Polycythemia - secondary to dehydration Continuing current management with IV fluid. Continuing with IV pain medication morphine. Continuing with Zosyn IV. Continuing with Ativan PRN Continuing with Librium. Advised to stop drinking. 03/15/2025: still has pain, advancing diet as appropriate. advancing to liquid diet today 03/16/2025: advancing diet as tolerated. advance to soft This medical document was created using an electronic medical record system with M[employer] direct computerized dictation system. Although this document has been carefully reviewed, there may still be some phonetic and typographical errors. These areas are purely typographical due to imperfections of the software programs, and do not reflect any compromise in the patient's medical care. Plan discussed with: Patient My Orders Orders - SAROJ GRIJALVA DO Procedure Category Date Status Time Clear Liq Diet DIET 03/15/25 Transmitted Dinner Date of Service: Mar 16, 2025 Billing Provider: SAROJ GRIJALVA DO Common Visit Codes: [id number] INP/OBS CARE(HIGH) SAROJ GRIJALVA DO Mar 16, 2025 14:27
[2025-03-17 05:00] VITALS: BP 144/93; PULSE 77; RESP 18; TEMP 97.9; O2SAT 93
[2025-03-17 08:00] VITALS: PULSE 70; PULSE 74; RESP 18; O2SAT 95
[2025-03-17 09:00] VITALS: BP 155/95; PULSE 68; RESP 20; TEMP 98.1; O2SAT 93
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
[2025-03-17 13:00] VITALS: BP 155/89; PULSE 74; RESP 18; TEMP 97.8; O2SAT 96
[2025-03-17] MEDS ORDERED: METR-344 PO ×2 (14:42)
--- NOTE | 2025-03-17 14:43 | DVHDS2 ---
Discharge Summary Date of Admission Mar 14, 2025 at 00:09 Date of Discharge: Mar 17, 2025 Labs/Diagnostic Data: Laboratory Results Test 03/15/25 05:31 03/14/25 10:00 03/14/25 02:55 03/14/25 01:09 White Blood Count 15.2 10^3/uL (4.4-10.8) Red Blood Count 5.21 10^6/uL (4.5-5.90) Hemoglobin 16.9 g/dL (13.5-17.5) Hematocrit 48.8 % (41.0-53.0) Mean Corpuscular Volume 93.7 fL (80.0-100.0) Mean Corpuscular Hemoglobin 32.5 pg (28.0-32.0) Mean Corpuscular Hemoglobin Concent 34.7 g/dL (32.0-36.0) Red Cell Distribution Width 13.5 % (11.8-14.3) Platelet Count 144 10^3/uL (140-450) Mean Platelet Volume 8.6 fL (6.9-10.8) Neutrophils (%) (Auto) 88.2 % (37.0-80.0) Lymphocytes (%) (Auto) 3.6 % (10.0-50.0) Monocytes (%) (Auto) 8.1 % (0.0-12.0) Eosinophils (%) (Auto) 0.0 % (0.0-7.0) Basophils (%) (Auto) 0.1 % (0.0-2.0) Neutrophils # (Auto) 13.4 10 ^3/uL (1.6-8.6) Lymphocytes # (Auto) 0.6 10 ^3/uL (0.4-5.4) Monocytes # (Auto) 1.2 10 ^3/uL (0-1.3) Eosinophils # (Auto) 0 10 ^3/uL (0-0.8) Basophils # (Auto) 0 10 ^3/uL (0-0.2) Nucleated Red Blood Cells 0.0 % Sodium Level 140 mmol/L (136-145) Potassium Level 3.9 mmol/L (3.5-5.1) Chloride Level 106 mmol/L (98-107) Carbon Dioxide Level 22 mmol/L (20-31) Anion Gap 12 (5-15) Blood Urea Nitrogen 8 mg/dL (9-23) Creatinine 0.86 mg/dL (0.700-1.30) Glomerular Filtration Rate Calc 117 mL/min (>90) BUN/Creatinine Ratio 9.3 (10.0-20.0) Serum Glucose 116 mg/dL (74-106) Calcium Level 7.9 mg/dL (8.7-10.4) Lipase 595 U/L (12-53) Lactic Acid Level 1.5 mmol/L (0.4-2.0) Total Bilirubin 1.6 mg/dL (0.2-1.0) Aspartate Amino Transferase (AST) 38 U/L (13-40) Alanine Aminotransferase (ALT) 41 U/L (7-40) Alkaline Phosphatase 72 U/L (46-116) Lactate Dehydrogenase 288 U/L (120-246) Total Protein 6.6 g/dL (5.7-8.2) Albumin 4.0 g/dL (3.2-4.8) Blood Gas Specimen Type Arterial Blood Gas Sample Site Right brachial Blood Gas Patient Temperature 37.0 Arterial Blood Date Drawn [id number] Arterial Blood pH 7.319 (7.350-7.450) Arterial Blood Partial Pressure CO2 37.4 mmHg (35.0-48.0) Arterial Blood Partial Pressure O2 90.0 mmHg (83.0-108.0) Arterial Blood HCO3 18.8 mmol/L (21.0-28.0) Arterial Blood Oxygen Saturation 96.4 % (94.0-98.0) Arterial Blood Base Excess -6.4 mmol/L (-2.0-3.0) Arterial Blood Oxyhemoglobin 95.2 % (94.0-98.0) Arterial Blood Carboxyhemoglobin 0.3 % (0.5-1.5) Arterial Blood Methemoglobin 0.9 % (0.0-1.5) Myles Test N/a Blood Gas Total Hemoglobin 20.10 g/dL (13.5-17.5) Blood Gas Modality Room air FiO2 % 21.0 Blood Gas Critical Value Read Back Yes Blood Gas Notified Whom fredy Mixon Blood Gas Notified Time [id number] Blood Gas Notified By irma Ryan Urine Color Yellow (Yellow) Urine Clarity Clear (Clear) Urine pH 5.5 (5.0-9.0) Urine Specific [place] 1.029 (1.001-1.035) Urine Protein 1+ (Negative) Urine Ketones 4+ (Negative) Urine Blood Negative /uL (Negative) Urine Nitrite Negative (Negative) Urine Bilirubin Negative (Negative) Urine Urobilinogen Normal mg/dL (Negative) Urine Leukocyte Esterase Negative /uL (Negative) Urine RBC None seen /hpf (0 - 3) Urine Microscopic WBC 20 /HPF (0-3) Urine Squamous Epithelial Cells Few /hpf (<5) Urine Bacteria None seen /hpf (None Seen) Urine Hyaline Casts Many /lpf (0 - 2) Urine Mucus Few (None Seen) Urine Glucose 4+ mg/dL (Normal) Urine Opiates Screen Pos (NEGATIVE) Urine Fentanyl Screen Neg (NEGATIVE) Urine Barbiturates Screen Neg (NEGATIVE) Urine Phencyclidine Screen Neg (NEGATIVE) Urine Amphetamines Screen Neg (NEGATIVE) Urine Benzodiazepines Screen Neg (NEGATIVE) Urine Cocaine Screen Neg (NEGATIVE) Urine Cannabinoids Screen Pos (NEGATIVE) Test 03/13/25 21:45 03/13/25 19:11 Phosphorus Level 4.0 mg/dL (2.4-5.1) Triglycerides Level 85 mg/dL (< 150) Cholesterol Level 158 mg/dL (< 200) LDL Cholesterol 58 mg/dL (< 100) HDL Cholesterol 69 mg/dL (40-59) Vitamin B12 Level 673 pg/mL (211-911) Vitamin D 25-Hydroxy 22.1 ng/mL (30.0-100) Plasma/Serum Blood Alcohol < 3.0 mg/dL (<10) Prothrombin Time 11.1 sec (9.3-11.8) Prothrombin Time INR 1.05 (0.9-1.15) Activated Partial Thromboplast Time 28.0 SEC (24.5-34.5) Hemoglobin A1c 5.2 % A1C (<5.7) Magnesium Level 2.3 mg/dL (1.6-2.6) Thyroid Stimulating Hormone (TSH) 1.60 uIU/mL (0.55-4.78) Other Laboratory Tests 03/15/25 05:31 Brief Hx & Hospital Course: Sepsis secondary to pancreatitis versus UTI Probable alcoholic pancreatitis Probable complicated UTI JEWEL hemodynamically mediated (VMN) Hyperlacticacidemia Ruled out are ARDS Transaminitis Ethanol abuse Polycythemia - secondary to dehydration Continuing current management with IV fluid. Continuing with IV pain medication morphine. Continuing with Zosyn IV. Continuing with Ativan PRN Continuing with Librium. Advised to stop drinking. 03/15/2025: still has pain, advancing diet as appropriate. advancing to liquid diet today 03/16/2025: advancing diet as tolerated. advance to soft 03/17/2025: discharged to home Condition at Discharge: Fair Final Diagnosis/Problems List see above Discharge Disposition: Home Discharge Instruct/Medications Diet: Cardiac 2g Na,low cholest Activity: No Restrictions, As Tolerated Scheduled Metronidazole (Flagyl), 1 TAB PO TID Discharge Statement: "Patient was advised to return to the ER or call 911 if any headaches, dizziness, shortness of breath, chest pain, abdominal pain, bleeding, fevers, or worsening of medical condition. Patient was counseled about treatment plan, medications, possible side effects, patientverbalized understanding. All questions were answered to the best of my ability. This discharge took greater then 30 minutes in planning, reviewing documentation, counseling the patient, and discussing with other team members." ASSESSMENT ASSESSMENT Assessment SAROJ GRIJALVA DO Mar 17, 2025 14:43
[2025-03-17 15:03] VITALS: BP 125/78; PULSE 66; RESP 18; TEMP 36.6; O2SAT 95
== END 2025-03-17 15:50 | disposition home or self-care (01) | DRG 871 ==
LOC: ER 18:13 → OVERFLOW 03-14 00:09 → TELE-WESTW 03-14 03:25
PROVIDERS: ADMIT Internal Medicine; ATTEND Internal Medicine
DX: A41.9 Sepsis, unspecified organism (principal); N17.0 Acute kidney failure with tubular necrosis; N39.0 Urinary tract infection, site not specified; K86.0 Alcohol-induced chronic pancreatitis; E86.0 Dehydration; F10.10 Alcohol abuse, uncomplicated; D75.1 Secondary polycythemia; R74.01 Elevation of levels of liver transaminase levels; Z79.899 Other long term (current) drug therapy
CPT/HCPCS: 36415; 36600; 71045; 74176; 80048; 80053; 80307; 81001; 82805; 83605; 83615; 83690; 85025; 87086; 93306; 96361; 96374; 96375; G0378; J1885; J2405; J2470; J2543

== ENCOUNTER 2025-03-19 11:23 | Emergency (ER) | payer OTHER ==
[~2025-03-19] VITALS: Ht 182.9 cm; Wt 83.0 kg
[~2025-03-19 11:23] MED LIST: METR-344 PO
--- NOTE | 2025-03-19 12:32 | ED.PDOC ---
History of Present Illness HPI Comments 34 y/o M, presents to the ED for CC of medication change. Patient reports, that he was recently discharged from [facility] for Dx:Pancreatitis and was prescribed Flagyl however, since taking medication he has experienced side effects of disorientation. On 03/13/25, patient's lipase was elevated at 1925 and then decreased to 545 which GI suggested to be possible pancreatitis. No other symptoms or modifying factors are present at this time. Chief Complaint: Abdominal Pain Time Seen by MD: 12:00 Reviewed Notes: Nurses Notes, Medications, Allergies Allergies: Coded Allergies: NO KNOWN ALLERGIES (Unverified , 03/13/25) Home Meds Active Scripts Metronidazole (Flagyl) 500 Mg Tab, 1 TAB PO TID, #30 TAB Prov:SAROJ GRIJALVA DO 03/17/25 Information Source: Patient Mode of Arrival: Ambulatory Severity: Moderate Timing: Days Duration: Since onset Prehospital treatment: None Past Medical History Surgical History: Denies all surgeries Family History Family History: Reviewed,noncontributory to illness Social History Smoker: Non-Smoker Alcohol: Occasionally Drugs: Denies Drug Use Lives In: Home Constitutional: denies: chills, diaphoresis, fatigue, fever, malaise, sweats, weakness, others EENTM: denies: blurred vision, double vision, ear bleeding, ear discharge, ear drainage, ear pain, ear ringing, eye pain, eye redness, hearing loss, mouth pain, mouth swelling, nasal discharge, nose bleeding, nose congestion, nose pain, photophobia, tearing, throat pain, throat swelling, voice changes, others Respiratory: denies: cough, hemoptysis, orthopnea, SOB at rest, shortness of breath, SOB with excertion, stridor, wheezing, others Cardiovascular: denies: chest pain, dizzy spells, diaphoresis, Dyspnea on exertion, edema, irregular heart beat, left arm pain, lightheadedness, palpitations, PND, syncope, others Gastrointestinal: denies: abdomen distended, abdominal pain, blood streaked bowels, constipated, diarrhea, dysphagia, difficulty swallowing, hematemesis, melena, nausea, poor appetite, poor fluid intake, rectal bleeding, rectal pain, vomiting, others Genitourinary: denies: burning, dysuria, flank pain, frequency, hematuria, incontinence, penile discharge, penile sore, pain, testicle pain, testicle swelling, urgency, others Neurological: denies: dizziness, fainting, headache, left sided numbness, left sided weakness, numbness, paresthesia, pre-existing deficit, right sided numbness, right sided weakness, seizure, speech problems, tingling, tremors, weakness, others Musculoskeletal: denies: back pain, gout, joint pain, joint swelling, muscle pain, muscle stiffness, neck pain, others Integumetry: denies: bruises, change in color, change in hair/nails, dryness, laceration, lesions, lumps, rash, wounds, others Allergic/Immunocompromised: denies: Difficulty Healing, Frequent Infections, Hives, Itching, others Hematologic/Lymphatic: denies: anemia, blood clots, easy bleeding, easy bruising, swollen glands, others Endocrine: denies: excessive hunger, excessive sweating, excessive thirst, excessive urination, flushing, intolerance to cold, intolerance to heat, unexpl ained weight gain, unexplained weight loss, others Psychiatric: denies: anxiety, bipolar disorder, depression, hopeless, panic disorder, schizophrenia, sleepless, suicidal, others All Other Systems: Reviewed and Negative Physical Exam General Appearance: No Apparent Distress HEENT: Normal ENT Inspection, Pharynx Normal, TMs Normal Neck: Full Range of Motion, Non-Tender, Normal, Normal Inspection Respiratory: Chest Non-Tender, Lungs Clear, No Accessory Muscle Use, No Respiratory Distress, Normal Breath Sounds Cardiovascular: No Edema, No JVD, No Murmur, No Gallop, Normal Peripheral Pulses, Regular Rate/Rhythm Breast Exam: Deferred Gastrointestinal: No Organomegaly, Non Tender, No Pulsatile Mass, Normal Bowel Sounds, Soft Genitalia: Deferred Pelvic: Deferred Rectal: Deferred Extremities: No calf tenderness, Normal capillary refill, Normal inspection, Normal range of motion, Non-tender, No pedal edema Musculoskeletal : Apperance: Normal Neurologic: Alert, associate 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 Was a procedure done?: No Differential Dx Considerations may include: MED CHANGE X-Ray, Labs, Meds, VS Vital Signs Date Time Temp Pulse Resp B/P (MAP) Pulse Ox O2 Delivery O2 Flow Rate FiO2 03/19/25 11:30 97.8 76 18 149/92 97 97.8 Lab Test 03/19/25 12:30 Range/Units Urine Color Light-yellow Yellow Urine Clarity Clear Clear Urine pH 6.0 5.0-9.0 Urine Specific [place] 1.007 1.001-1.035 Urine Protein Negative Negative Urine Ketones Trace Negative Urine Blood 2+ H Negative /uL Urine Nitrite Negative Negative Urine Bilirubin Negative Negative Urine Urobilinogen Normal Negative mg/dL Urine Leukocyte Esterase Trace Negative /uL Urine RBC 3 0 - 3 /hpf Urine Microscopic WBC 4 H 0-3 /HPF Urine Squamous Epithelial Cells Few <5 /hpf Urine Bacteria Few H None Seen /hpf Urine Glucose Normal Normal mg/dL We did explain to the patient that we are going to discharge him without any antibiotics at this time The patient was admitted for pancreatitis with a lipase levels have decreased and at this time we feel that the patient can be discharged and can follow up with his doctor Time of 1ST Reevaluation: 12:30 Reevaluation 1ST: Unchanged Patient Education/Counseling: Diagnosis, Treatment, Prognosis, Need For Follow Up Family Education/Counseling: No Family Present SEPSIS Sepsis Screen Date sepsis recognized/suspect: Mar 19, 2025 Time Sepsis recognized/suspect: 1130 Recent Procedure: No On Antibiotic Therapy: Yes Respiratory Rate >20: No Heart Rate >90: No Temp<36 C (96.8 F) or >38.3 C: No SBP <90 or MAP <65 mmHG: No New Acute Mental Status Change: No Is the patient on CPAP, BIPAP,: No Vital Signs Date Time Temp Pulse Resp B/P (MAP) Pulse Ox O2 Delivery O2 Flow Rate FiO2 03/19/25 11:30 97.8 76 18 149/92 97 97.8 Departure 1 Departure Time of Disposition: 13:17 Impression: Primary Impression: Abdominal pain Qualified Codes: R10.9 - Unspecified abdominal pain Disposition: 01 HOME / SELF CARE / HOMELESS Condition: Fair Discharged With: Self Critical Care Note Critical Care Time?: No Stability Stability form required: No Heart Score Heart Score: Heart Score Response (Comments) Value History N/A 0 EKG N/A 0 Age N/A 0 Risk Factors N/A 0 Troponin N/A 0 Total 0 I personally scribed for MARCIO GIRARD MD ([email or web address]) on 03/19/25 at 12:32. Electronically submitted by Sharon Maxwell [email or web address]). MARCIO GIRARD MD Mar 19, 2025 12:32
[2025-03-19 12:45] LABS: Urine Protein, UAD Negative (Negative)
[2025-03-19 14:07] VITALS: BP 150/93; PULSE 78; RESP 18; TEMP 98; O2SAT 96
== END 2025-03-19 14:11 | disposition home or self-care (01) ==
LOC: ER 11:23
DX: R10.9 Unspecified abdominal pain (principal); F10.90 Alcohol use, unspecified, uncomplicated; Z79.899 Other long term (current) drug therapy; Y90.9 Presence of alcohol in blood, level not specified
CPT/HCPCS: 81001

== ENCOUNTER 2025-04-18 22:57 | Emergency (ER) | payer SELFPAY ==
[~2025-04-18] VITALS: Ht 182.9 cm; Wt 77.0 kg
[2025-04-18 22:59] VITALS: BP 154/92; PULSE 118; RESP 16; TEMP 98.1; O2SAT 99
[2025-04-19] MEDS ORDERED: IBUP-1456 PO (02:03)
[2025-04-19] MEDS ORDERED: CYCL-837 PO (02:03)
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
[2025-04-19] MEDS: HYDROcodone-ACET 5/325MG TAB PO ONE (02:06)
--- NOTE | 2025-04-19 02:16 | DVH ---
CLINICAL INDICATION: right knee pain TECHNIQUE: XY R KNEE 3V XRAY Comparison: XY R SHOULDER 2+ VIEW XRAY on DOS: 04/19/25 FINDINGS/IMPRESSION: : There is no evidence of acute fracture or dislocation. Hardware within the patella status post ORIF without evidence of complication. Soft tissues are unremarkable.
--- NOTE | 2025-04-19 02:20 | DVH ---
CLINICAL INDICATION: right shoulder pain TECHNIQUE: XY R SHOULDER 2+ VIEW XRAY Comparison: XY R KNEE 3V XRAY on DOS: 04/19/25 FINDINGS/IMPRESSION: : There is no evidence of acute fracture or dislocation. Soft tissues are unremarkable.
== END 2025-04-19 02:47 | disposition home or self-care (01) ==
LOC: ER 22:57
DX: S46.911A Strain of unspecified muscle, fascia and tendon at shoulder and upper arm level, right arm, initial encounter (principal); S80.01XA Contusion of right knee, initial encounter; V49.9XXA Car occupant (driver) (passenger) injured in unspecified traffic accident, initial encounter; Y93.89 Activity, other specified; Y92.410 Unspecified street and highway as the place of occurrence of the external cause; Y99.8 Other external cause status
CPT/HCPCS: 73030; 73562